=== PATIENT | male | born 1965 | race African-American/Black ===

== ENCOUNTER 2022-06-11 01:27 | Emergency (ER) | payer OTHER, BC ==
[2022-06-11] MEDS ORDERED: CLINDAMYCIN HC300 MG PO ×2 (03:01→04:09)
[2022-06-11] MEDS ORDERED: ANTIBIOTIC28.4 GM T ×2 (03:50→04:09)
== END 2022-06-11 05:02 | disposition home or self-care (01) ==
LOC: ED 01:27
DX: S01.81XA Laceration without foreign body of other part of head, initial encounter (principal); V47.5XXA Car driver injured in collision with fixed or stationary object in traffic accident, initial encounter; W22.19XA Striking against or struck by other automobile airbag, initial encounter; Y93.89 Activity, other specified; Y92.410 Unspecified street and highway as the place of occurrence of the external cause; Y99.8 Other external cause status

== ENCOUNTER 2023-06-18 10:18 | Emergency (ER) | payer BC ==
[~2023-06-18] VITALS: Ht 187.9 cm; Wt 104.3 kg
[~2023-06-18 10:18] MED LIST: ANTIBIOTIC28.4 GM T; CLINDAMYCIN HC300 MG PO
== END 2023-06-18 11:55 | disposition home or self-care (01) ==
LOC: ED 10:18
DX: R19.04 Left lower quadrant abdominal swelling, mass and lump (principal); R19.03 Right lower quadrant abdominal swelling, mass and lump; J45.909 Unspecified asthma, uncomplicated

== ENCOUNTER 2023-09-10 07:49 | Emergency (ER) | payer BC ==
[~2023-09-10] VITALS: Ht 187.9 cm; Wt 106.1 kg
[2023-09-10] MEDS ORDERED: Ketorolac Tromethamine 15 MG/ML VIAL IV ONE (08:05)
[2023-09-10] MEDS ORDERED: Metoclopramide Hydrochloride 10 MG/2 ML AMP IV ONE (08:05)
[2023-09-10] MEDS ORDERED: diphenhydrAMINE hydrochloride 50 MG/ML VIAL IV ONE (08:05)
[2023-09-10] MEDS ORDERED: SODIUM CHLORIDE 0.9% 1,000 ML IV ONE (08:05)
[2023-09-10 08:20] LABS: BASO % 0.6 % (0.0-1.0); EOS # 0.1 10*3/uL (0.0-0.4); HEMATOCRIT 44.2 % (42.0-52.0); LYMPH # 1.3 10*3/uL (1.3-4.4); LYMPH % 39.6 % (27.0-41.0); MEAN CELL VOLUME 79.6 fl (80.0-94.0); MEAN CORPUSCULAR HGB 25.6 pg (27.0-31.0); MEAN CORPUSCULAR HGB CONC 32.1 g/dl (33.0-37.0); MEAN PLATELET VOLUME 11.3 fl (9.6-12.3); MONO # 0.3 10*3/uL (0.1-1.0); MONO % 10.5 % (3.0-9.0); NEUT # 1.5 10*3/uL (2.3-7.9); PLATELET COUNT AUTOMATED 215 10*3/uL (130-400); RED BLOOD COUNT 5.55 10*6/uL (4.50-5.90); RED CELL DISTRI WIDTH 13.8 % (0-14.5); WHITE BLOOD COUNT 3.2 10*3/uL (4.8-10.8)
[2023-09-10 08:45] LABS: ALKALINE PHOSPHATASE 70 U/L (46-116); BUN 13 mg/dl (9-23); CHLORIDE 109 mmol/L (98-107); POTASSIUM 3.9 mmol/L (3.4-5.1); SGPT/ALT 21 U/L (5-49)
[2023-09-10] MEDS ORDERED: IBU800 M2 PO (09:06)
[2023-09-10] MEDS ORDERED: ZYRTEC ALLERGY10 MG PO (09:06)
[2023-09-10] MEDS ORDERED: REGLAN10 M1 PO (09:06)
== END 2023-09-10 09:16 | disposition home or self-care (01) ==
LOC: ED 07:49
PROVIDERS: Emergency Medicine
DX: R51.9 Headache, unspecified (principal); J45.909 Unspecified asthma, uncomplicated

== ENCOUNTER 2024-12-07 18:10 | Emergency (ER) | payer OTHER ==
[~2024-12-07] VITALS: Ht 187.9 cm; Wt 90.7 kg
[~2024-12-07 18:10] MED LIST changes: +IBU800 M2 PO; +REGLAN10 M1 PO; +ZYRTEC ALLERGY10 MG PO
[2024-12-07] MEDS ORDERED: SODIUM CHLORIDE 0.9% 1,000 ML IV ONE (19:00)
[2024-12-07] MEDS ORDERED: IBUPROFEN 600 MG TAB PO ONE (19:00)
[2024-12-07 19:14] LABS: NUCLEATED RED BLOOD CELL 0.0 % (0.0-0.0); NUCLEATED RED BLOOD CELL 0.0 10*3/uL (0.0-0.0)
[2024-12-07 19:26] LABS: BASO # 0.0 10*3/uL (0.0-0.1); BASO % 0.2 % (0.0-1.0); EOS # 0.0 10*3/uL (0.0-0.4); EOS % 0.1 % (1.0-4.0); MEAN CELL VOLUME 77.7 fl (80.0-94.0); MEAN CORPUSCULAR HGB 26.3 pg (27.0-31.0); MEAN PLATELET VOLUME 10.9 fl (9.6-12.3); MONO # 1.1 10*3/uL (0.1-1.0); MONO % 7.9 % (3.0-9.0); NEUT # 12.7 10*3/uL (2.3-7.9); NEUT % 88.0 % (47.0-73.0); PLATELET COUNT AUTOMATED 160 10*3/uL (130-400); RED CELL DISTRI WIDTH 14.2 % (0-14.5)
[2024-12-07 19:33] LABS: BUN 16.0 mg/dl (9-23)
[2024-12-07 19:48] LABS: BILIRUBIN Negative (Negative); BLOOD Negative (Negative); CLARITY Clear (Clear); COLOR Yellow (Yellow); KETONE Negative (Negative); LEUKO ESTERASE 1+ (Negative); NITRITE Negative (Negative); PH 5.5 (4.5-8.0); SPECIFIC GRAVITY 1.015 (1.001-1.030); UROBILINOGEN 0.2 E.U./dl (0.0-1.0)
[2024-12-07 20:18] LABS: BACTERIA 1+; MUCOUS TRACE
[2024-12-07] MEDS ORDERED: CIPRO500 MG PO (22:11)
== END 2024-12-07 22:23 | disposition home or self-care (01) ==
LOC: ED 18:10
PROVIDERS: Nurse Practitioner Family
DX: N39.0 Urinary tract infection, site not specified (principal); J45.909 Unspecified asthma, uncomplicated; Z20.822 Contact with and (suspected) exposure to COVID-19; Z79.899 Other long term (current) drug therapy